=== PATIENT | male | born 1985 | race Caucasian/White ===

== ENCOUNTER → 2017-10-06 11:15 | Outpatient (CLI) | payer MEDICAID, SELFPAY ==
--- NOTE | 2017-10-06 11:13 | DI.REPORT_ITS ---
SYMPTOM/DIAGNOSIS: SCAPULA FX 2 MONTHS AGO. RIGHT SHOULDER: 10/06 Two views were obtained. The previously noted fracture of the scapula is again seen with no gross interval change in alignment of the fracture fragments in comparison with examination of 08/29.
== END ==
PROVIDERS: Visit Provider Physician Assistant Surgical
DX: S42.141D Displaced fracture of glenoid cavity of scapula, right shoulder, subsequent encounter for fracture with routine healing (principal); M25.511 Pain in right shoulder
CPT/HCPCS: 73010

== ENCOUNTER 2019-03-09 09:48 | Emergency (ER) | payer OTHER, SELFPAY ==
[2019-03-09 09:53] VITALS: BP 139/84; PULSE 121; RESP 18; TEMP 37.2; O2SAT 98
--- NOTE | 2019-03-09 10:05 | W.ED.GENAD ---
Discharge Plan Disposition Patient Disposition: HOME Condition: Good Discharge Details Chief Complaint: DentalOral Clinical Impression: Pain, dental, Dental abscess Primary Care Provider: Nelly,Local ED Provider: Spenser Springer Home Meds and New Rx's Prescriptions: New amoxicillin-pot clavulanate [Augmentin] 875-125 mg tablet 1 tab PO BID Qty: 20 RF: 0 Continued ibuprofen 200 MG tablet 1 tab PO PRN PRNRF: 0 Discharge Instructions Instructions: Dental Abscess (ED), Toothache (ED) Additional Instructions: At this time you have a notable dental abscess which is improved after the incision and drainage. Please take the antibiotic as directed. Please take 800 mg of ibuprofen every 6 hours and 1000 mg of Tylenol every 6 hours for control the pain and swelling. Please follow-up closely with your dentist. If you notice any worsening of your symptoms, or any new symptoms such as vomiting, diarrhea, fever, chills, shortness of breath, chest pain, numbness, weakness, or fainting , please return immediately to the emergency department for reevaluation. Please follow up with your primary care provider as soon as possible for reassessment and reevaluation. As always, it was a pleasure participating in your medical care today. Medical Decision Making 33-year-old male presents for left lower dental pain. Dental pain is been present for the last few weeks, however over the last 48 hours he has noticed notable swelling. Physical exam demonstrates a notable left lower periapical abscess at tooth 19. No evidence of Ludewig's angina, airway compromise or other abnormality. Patient was given a posterior inferior alveolar block with notable improvement, 11 blade was then used for an initial I&D, only small amount of pus was exuded. 18-gauge needle was then used for reassessment, and over 4 cc of pus was removed via this method. Patient tolerated procedure well. Patient will be given Augmentin for home use, recommend Tylenol Motrin for home. Dental sheet will be provided although he does have follow-up in [place] with a dentist already. I have extensively reviewed the treatment plan and discharge instructions with the patient. I have addressed all patient concerns at this time. The patient was made aware of what symptoms to monitor for that would warrant a return to the emergency department. Discussed the plan with the patient, they demonstrate verbal understanding and agreement with our assessment and plan at this time. Time out was taken to identify the correct patient, procedure, and site. Risks and benefits were discussed with the patient and consent was obtained. Direct pressure was held over the area prior to the procedure to reduce painful injection. Lidocaine 1% 5ml was instilled into the posterior inferior alveolar nerve area as well as around the tooth over the painful tooth on the buccal aspect with a 27 gauge needle. Moderate analgesia was obtained. The abscess was then incised with a small stab with an 11 blade and a moderate amount of pus and blood returned. 18-gauge needle was then used and over 4 cc of pus was removed. The patient tolerated the procedure. There were no complications. HPI General Date/Time Provider Initiated Documentation: 03/09/19 09:53. HPI Narrative: 33-year-old male with no significant past medical history except for severe dental caries who presents today for evaluation of dental pain and large abscess. Patient states that for the last week he has had pain in his left lower dental area, however the last 24 hours he has had a notably large swelling on the left lower side of his face. He denies fever or chills. He denies difficulty swallowing or eating. He just got his insurance, and is scheduled to follow-up with a dentist in [facility]. He denies any other complaints at this time. He denies any allergies. No other modifying factors. Related Data Home Medications Medication Instructions Recorded Confirmed ibuprofen 1 tab PO PRN PRN 08/29/17 03/09/19 amoxicillin-pot clavulanate 1 tab PO BID #20 tab 03/09/19 [Augmentin] Previous Rx's Medication Instructions Recorded amoxicillin-pot clavulanate 1 tab PO BID #20 tab 03/09/19 [Augmentin] Allergies Allergy/AdvReac Type Severity Reaction Status Date / Time No Known Allergies Allergy Unverified 03/09/19 09:57 General Stated Complaint: DentalOral JENNY: 4 Review of Systems All systems reviewed & are unremarkable except as noted in HPI and below PFSH Social History Smoking/Tobacco Use Status: Never Alcohol Intake: current Alcohol Intake frequency: 0-2 drinks per day Substance use type: marijuana Do you feel safe in your relationship?: Yes Exam Narrative Exam Narrative: 1.Const: Well-nourished, Well-developed, appearing stated age 2.Eyes: PERRL, no conjunctival injection, and symmetrical lids. 3.ENT: Atraumatic external nose and ears. Moist MM. Neck: Symmetric, trachea midline, No thyromegaly. Notable severe dental caries throughout, he has a particularly diseased tooth at tooth 19. There is evidence of a notably large periapical abscess causing notable lateral swelling. No signs of airway compromise whatsoever. No evidence of peritonsillar abscess. No nuchal rigidity or significant lymphadenopathy. No evidence of Ludewig's angina 4.CVS: +S1/S2, No murmurs or gallops. Peripheral pulses 2+ and equal in all extremities. Brisk capillary refill in all extremities. 5.RESP: Unlabored respiratory effort. Clear to auscultation bilaterally. No wheezes rales or rhonchi 6.GI: Soft, Nontender/Nondistended, No hepatosplenomegaly. No guarding or rebound. 7.MSK: Normocephalic/Atraumatic, Extremities w/o deformity or ttp No cyanosis or clubbing, Normal movement of all extremities 8.Skin: Warm, Dry. No rashes or lesions. 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 Sensation grossly intact, no focal neurologic deficits. 10.Psych: (AAO) x3. Appropriate mood and affect Course Vital Signs Vital signs: Vital Signs Temperature 37.2 C 03/09/19 09:53 Pulse 121 H 03/09/19 09:53 Respiratory Rate 18 03/09/19 09:53 Blood Pressure 139/84 03/09/19 09:53 Pulse Oximetry 98 03/09/19 09:53 Temperature 37.2 C 03/09/19 09:53 Temperature Source Skin 03/09/19 09:53 Pulse 121 H 03/09/19 09:53 Respiratory Rate 18 03/09/19 09:53 Respiratory Effort 03/09/19 09:55 Blood Pressure 139/84 03/09/19 09:53 Blood Pressure Position Sitting 03/09/19 09:53 Pulse Oximetry 98 03/09/19 09:53 Oxygen Delivery Method Room Air 03/09/19 09:53 Oxygen Flow Rate 0 03/09/19 09:53 Pain Level 6 03/09/19 09:53 Procedures Abscess I/D Site: Face Side (if applicable): Left Sedation/analgesia: Other Local Anesthetic: Lidocaine 2% and Bupivicaine 0.5% Amount of anesthesia used (mL): 7 Technique: Needle Aspiration and Incised with #11 Blade Amount of fluid expressed (mL): 8 Irrigation: No Packing used?: None
[2019-03-09 10:23] VITALS: BP 159/101; PULSE 112; RESP 20; TEMP 37; O2SAT 96
[2019-03-09] MEDS: Amoxicillin 875/Clav. 125 TAB PO (10:24)
== END 2019-03-09 10:27 | disposition home or self-care (01) ==
LOC: ER 10:48
PROVIDERS: Emergency Provider Student in an Organized Health Care Education/Training Program
DX: K04.7 Periapical abscess without sinus (principal)
CPT/HCPCS: 10060

== ENCOUNTER 2019-04-05 11:58 | Outpatient (REF) | payer OTHER, SELFPAY ==
[2019-04-05 19:08] LABS: ALT 35 U/L (16-63); AST 15 U/L (15-37); Albumin 4.3 g/dL (3.4-5.0); Alkaline Phosphatase 72 U/L (46-116); Anion Gap 9.5 mmol/L (3-11); BUN 15 mg/dL (7-18); Bilirubin, Total 0.5 mg/dL (0.2-1.0); CO2 29.5 mmol/L (21.0-32.0); CREATININE 0.74 mg/dL (0.70-1.30); Calcium 9.5 mg/dL (8.5-10.1); Chloride 105 mmol/L (98-107); Glucose 99 mg/dL (74-106); Potassium 3.9 mmol/L (3.5-5.1); Sodium 144 mmol/L (136-145); TSH (W/Ref FT4) 1.38 uIU/mL (0.36-3.74); Total Protein 7.2 g/dL (6.4-8.2)
[2019-04-05 19:19] LABS: Vitamin D 25 Total 17.3 ng/ml (30-100)
== END 2019-04-05 12:18 ==
LOC: NCHCN 11:58
PROVIDERS: Visit Provider Nurse Practitioner
DX: F41.9 Anxiety disorder, unspecified (principal); E55.9 Vitamin D deficiency, unspecified
CPT/HCPCS: 80053; 82306; 84443